=== PATIENT | male | born 1970 | race Caucasian/White ===

== ENCOUNTER 2022-02-04 16:35 | Emergency (ER) | payer OTHER, SELFPAY ==
[2022-02-04] VITALS (20 sets, daily range): BP systolic 116–183; BP diastolic 56–100; PULSE 52–65; RESP 14–48; TEMP 35.8; O2SAT 92–97; BMI 43.0
[2022-02-04 17:18] LABS: Add Manual Diff / Slide Review NO; Basophils Absolute Auto 100 /uL (0-100); Basophils Percent Auto 0.9 % (0-2); Eosinophils Absolute Auto 100 /uL (0-450); Eosinophils Percent Auto 1.7 % (2-4); Hematocrit 36.9 % (41-53); Hemoglobin 13.1 g/dL (13.5-17.5); Lymphocytes Absolute Auto 1100 /uL (1100-4500); Lymphocytes Percent Auto 14.8 % (25-40); Mean Corpuscular HGB Conc 35.5 % (30-36); Mean Corpuscular Hemoglobin 30.9 PG (26-34); Monocytes Absolute Auto 600 /uL (0-900); Monocytes Percent Auto 8.1 % (3-14); Neutrophils Absolute Auto 5400 /uL (1500-7000); Neutrophils Percent Auto 74.5 % (50-75); Platelet Count 187 X10^3/uL (150-400); Red Blood Cell Count 4.24 X10^6/uL (4.5-5.9); Red Cell Distribution Width 14.5 % (11.6-14.8); White Blood Cell Count 7.3 X10^3/uL (4.5-11.0)
[2022-02-04 17:29] LABS: Alanine Aminotransferase 632 IU/L (<50); Albumin 4.1 g/dL (3.5-5.0); Albumin Globulin Ratio 1.2 (1.0-2.8); Alkaline Phosphatase 258 U/L (38-126); Aspartate Aminotransferase 423 IU/L (17-59); BUN Creatinine Ratio 15.4 (6-22); Bilirubin Total 2.1 mg/dL (0.2-1.3); Blood Urea Nitrogen 14 mg/dL (9-20); Calcium 8.7 mg/dL (8.4-10.2); Carbon Dioxide 24 mmol/L (22-32); Chloride 105 mmol/L (98-107); Estimated Glomerular Filt Rate > 60 mL/min (>60); Globulin 3.4 g/dL (1.7-4.1); Glucose 83 mg/dL (70-100); HEMOLYSIS < 15 (0-50); Lipase 541 U/L (23-300); Potassium 3.7 mmol/L (3.4-5.1); Sodium 140 mmol/L (137-145); Total Protein 7.5 g/dL (6.3-8.2)
--- NOTE | 2022-02-04 18:08 | DI.US.S_ITS ---
PROCEDURE: US ABDOMEN LIMITED INDICATIONS: severe abdominal pain, RUQ per [place] TECHNIQUE: Real-time scanning was performed of the abdominal and retroperitoneal organs, with image documentation. COMPARISON: [facility], CT, CT ABDOMEN WITH CONTRAST, 02/01/2022, 12:51. FINDINGS: Liver: Upper limits of normal in size measuring 18.6 cm in length. Increased in echogenicity. Gallbladder: Nondilated. Small gallstones and sludge. Normal gallbladder wall thickness. No pericholecystic fluid. Negative sonographic James's sign. Biliary ducts: Intrahepatic bile ducts are non-dilated. Extrahepatic bile duct caliber measures 7 mm. Normal is 6-7 mm or less in diameter, or 10 mm or less post-cholecystectomy. Pancreas: Not well seen. IMPRESSION: Technically difficult exam. Decreased sonographic penetration of the liver. 1. No acute cholecystitis demonstrated. Gallstones and sludge suspected. 2. Increased hepatic echogenicity most consistent with hepatic steatosis. Other forms of hepatocellular disease could have similar appearance. Dictated by: Chidi Zambrano M.D. on 02/04/2022 at 19:24 Approved by: Chidi Zambrano M.D. on 02/04/2022 at 19:26
--- NOTE | 2022-02-04 18:08 | ED_ITS ---
HPI - Abdominal Pain General Chief Complaint: Abdominal Pain Stated Complaint: Severe ABD pain Time Seen by Provider: 02/04/22 18:05 Source: patient Mode of arrival: Ambulatory History of Present Illness HPI narrative: 52-year-old male former smoker with history of hypertension and hyperlipidemia presents for evaluation of severe epigastric and right upper quadrant pain. He states that over the past few days and has been increasingly present and seems to be triggered by food and drink. He was recently seen at [facility] under relatively similar circumstances, however at the time he had extremely high blood pressure and was diverted to [facility] from [id number] due to his potential for cardiac disease. Today he states he has moderate intensity epigastric pain without radiation and complains of provocation and palliation based on the elements listed above. He denies any runny nose, sore throat or cough. He has no chest pain or shortness of breath. Related Data Previous Rx's Medication Instructions Recorded amoxicillin 875 mg-potassium 1 tab PO Q12H #20 tabs 02/04/22 clavulanate 125 mg tablet hydrocodone 5 mg-acetaminophen 325 1 tab PO Q4-6H PRN pain #10 tabs 02/04/22 mg tablet ondansetron 4 mg disintegrating 4 mg PO TID-QID PRN nausea and 02/04/22 tablet vomiting #10 tabs Allergies Allergy/AdvReac Type Severity Reaction Status Date / Time No Known Drug Allergies Allergy Verified 02/04/22 21:31 Review of Systems Review of Systems Narrative: GENERAL: Denies chills, fatigue, malaise, fever, sweats. HEENT: Denies sinus pain, ear pain, sore throat, difficulty swallowing, dizziness. RESPIRATORY: Denies dyspnea, cough, wheezing, hemoptysis, sputum. CARDIOVASCULAR: Denies chest pain, palpitations, orthopnea, edema, GASTROINTESTINAL: See HPI : Denies dysuria, frequency, incontinence, hematuria, urinary retention. MUSCULOSKELETAL: denies weakness, joint pain, or bony pain SKIN: Denies rash, skin lesions, or other NEUROLOGIC: Denies weakness, headache, numbness, change in speech, confusion, seizures, incoordination. PSYCHIATRIC: No concerning psychosocial issues. 12 point review of systems is negative except for those stated above Patient History Social History Smoking Status: Former smoker Smoking Status: Former smoker alcohol intake frequency: a few times a month Substance Use Type: does not use Exam Narrative Exam Narrative: GENERAL: [52] year old patient appears stated age. Well-developed patient, in mild distress. HEAD: Atraumatic. Normocephalic. EYES: Pupils equal round and reactive. Extraocular motions intact. No scleral icterus. No injection or drainage. ENT: Nose without bleeding, purulent drainage. Throat without erythema, tonsillar hypertrophy or exudate. Airway patent. NECK: Trachea midline. Non tender CARDIOVASCULAR: Regular rate and rhythm without murmurs, gallops, or rubs. RESPIRATORY: Clear to auscultation. Breath sounds equal bilaterally. No wheezes, rales, or rhonchi. GASTROINTESTINAL: Abdomen soft, tender in the epigastric, nondistended. EXTREMITIES: No edema or joint tenderness. BACK: Nontender without deformity or crepitance. No flank tenderness. NEURO: AOx3. SKIN: No rash or erythema of visible areas Initial Vital Signs Initial Vital Signs: Vital Signs Temperature 96.5 F L 02/04/22 16:47 Pulse Rate 65 02/04/22 16:47 Respiratory Rate 20 02/04/22 16:47 Blood Pressure 183/100 H 02/04/22 16:47 Pulse Oximetry 97 02/04/22 16:47 Oxygen Delivery Method 02/04/22 16:47 Course Orders Ordered: ED Orders 02/04/22 17:07 Complete Blood Count AUTO DIFF Stat Comprehensive Metabolic Panel Stat Lipase Stat 02/04/22 17:29 EKG-12 Lead Stat 02/04/22 18:08 US abdomen limited Stat 02/04/22 19:42 CT abdomen pelvis w con Stat 02/04/22 19:45 Ictotest Urine Stat Urine Culture Stat Urine Microscopic Stat 02/04/22 22:00 Hepatitis Acute Panel Stat Discontinued Medications Hydrocodone Bitart/Acetaminophen (Hydrocodone/Acet 5/325 Prepack) 1 bottle MISC SEEINSTR ONE Stop: 02/04/22 23:00 Last Admin: 02/04/22 23:27 Dose: 1 bottle Documented By: ANTOINE Hydromorphone HCl (Hydromorphone 0.5 Mg Inj) 0.5 mg IV NOW ONE Stop: 02/04/22 18:18 Last Admin: 02/04/22 19:54 Dose: 0.5 mg Documented By: GARRY Hydromorphone HCl (Hydromorphone 1 Mg Inj) 1 mg IV NOW ONE Stop: 02/04/22 21:27 Last Admin: 02/04/22 23:28 Dose: Not Given Documented By: ANTOINE Sodium Chloride (Normal Saline 0.9%) 1,000 mls @ 1,000 mls/hr IV BOLUS ONE Stop: 02/04/22 19:16 Last Infusion: 02/04/22 23:00 Dose: 0 mls/hr Documented By: Admin: 02/04/22 19:15 Dose: 1,000 mls/hr Documented By: ASHKAN Ondansetron HCl (Ondansetron 4 Mg/2 Ml Inj) 4 mg IV NOW ONE Stop: 02/04/22 18:18 Last Admin: 02/04/22 19:55 Dose: 4 mg Documented By: GARRY Ondansetron HCl (Ondansetron 4 Mg Odt Prepack) 1 bottle MISC SEEINSTR ONE Stop: 02/04/22 23:00 Last Admin: 02/04/22 23:28 Dose: 1 bottle Documented By: ANTOINE Reevaluation(s) Reevaluation #1: Significant improvement after above-stated therapies. Pain is well controlled, he has no nausea or vomiting and is tolerating orals. Vital Signs Vital signs: Vital Signs - 8 hr 02/04/22 16:47 02/04/22 17:29 02/04/22 17:30 Temperature 96.5 F L Pulse Rate 65 64 63 Respiratory Rate 20 30 H 19 Blood Pressure 183/100 H Pulse Oximetry 97 97 97 Oxygen Delivery Method Room Air Room Air 02/04/22 17:31 02/04/22 17:31 02/04/22 18:00 Temperature Pulse Rate 61 56 L Respiratory Rate 18 21 Blood Pressure 146/68 H Pulse Oximetry 95 96 Oxygen Delivery Method 02/04/22 18:01 02/04/22 18:01 02/04/22 18:30 Temperature Pulse Rate 56 L 55 L Respiratory Rate 22 16 Blood Pressure 128/59 L Pulse Oximetry 96 97 Oxygen Delivery Method 02/04/22 18:31 02/04/22 18:31 02/04/22 19:00 Temperature Pulse Rate 55 L 65 Respiratory Rate 14 25 H Blood Pressure 137/68 Pulse Oximetry 97 96 Oxygen Delivery Method 02/04/22 19:01 02/04/22 19:01 02/04/22 19:30 Temperature Pulse Rate 62 64 Respiratory Rate 29 H 35 H Blood Pressure 148/70 H Pulse Oximetry 95 95 Oxygen Delivery Method 02/04/22 19:31 02/04/22 19:31 02/04/22 20:00 Temperature Pulse Rate 65 63 Respiratory Rate 25 H 28 H Blood Pressure 158/77 H Pulse Oximetry 95 93 Oxygen Delivery Method 02/04/22 20:01 02/04/22 20:01 02/04/22 20:31 Temperature Pulse Rate 63 62 Respiratory Rate 21 25 H Blood Pressure 116/56 L Pulse Oximetry 93 Oxygen Delivery Method 02/04/22 21:00 02/04/22 21:30 02/04/22 22:00 Temperature Pulse Rate 60 60 63 Respiratory Rate 16 19 40 H Blood Pressure Pulse Oximetry 94 96 92 Oxygen Delivery Method 02/04/22 22:30 02/04/22 23:00 Temperature Pulse Rate 52 L 60 Respiratory Rate 14 48 H Blood Pressure Pulse Oximetry 95 Oxygen Delivery Method MDM - Abdominal Pain Lab Data Result diagrams: 02/04/22 17:07 02/04/22 17:07 Labs: Lab Results 02/04/22 02/04/22 02/04/22 Range/Units 17:07 17:07 19:45 WBC 7.3 (4.5-11.0) X10^3/uL RBC 4.24 L (4.5-5.9) X10^6/uL Hgb 13.1 L (13.5-17.5) g/dL Hct 36.9 L (41-53) % MCV 87.0 (80-100) fL MCH 30.9 (26-34) PG MCHC 35.5 (30-36) % RDW 14.5 (11.6-14.8) % Plt Count 187 (150-400) X10^3/uL Neut % (Auto) 74.5 (50-75) % Lymph % (Auto) 14.8 L (25-40) % Tama % (Auto) 8.1 (3-14) % Eos % (Auto) 1.7 L (2-4) % Baso % (Auto) 0.9 (0-2) % Neut # (Auto) 5400 (4225-2538) /uL Lymph # (Auto) 1100 (2265-6541) /uL Tama # (Auto) 600 (0-900) /uL Eos # (Auto) 100 (0-450) /uL Baso # (Auto) 100 (0-100) /uL Sodium 140 (137-145) mmol/L Potassium 3.7 (3.4-5.1) mmol/L Chloride 105 (98-107) mmol/L Carbon Dioxide 24 (22-32) mmol/L BUN 14 (9-20) mg/dL Creatinine 0.91 (0.66-1.25) mg/dL Estimated GFR > 60 (>60) mL/min BUN/Creatinine Ratio 15.4 (6-22) Glucose 83 (70-100) mg/dL Calcium 8.7 (8.4-10.2) mg/dL Total Bilirubin 2.1 H (0.2-1.3) mg/dL AST 423 H (17-59) IU/L ALT 632 H (<50) IU/L Alkaline Phosphatase 258 H (38-126) U/L Total Protein 7.5 (6.3-8.2) g/dL Albumin 4.1 (3.5-5.0) g/dL Globulin 3.4 (1.7-4.1) g/dL Albumin/Globulin Ratio 1.2 (1.0-2.8) Lipase 541 H (23-300) U/L Ur Bilirubin Confirm Positive H (Negative) Urine RBC (0-5/HPF) Urine WBC (0-5/HPF) Ur Squamous Epith Cells (0-5/HPF) Urine Bacteria (None) Urine Mucus (Negative) Ur Culture Indicated? 02/04/22 Range/Units 19:45 WBC (4.5-11.0) X10^3/uL RBC (4.5-5.9) X10^6/uL Hgb (13.5-17.5) g/dL Hct (41-53) % MCV (80-100) fL MCH (26-34) PG MCHC (30-36) % RDW (11.6-14.8) % Plt Count (150-400) X10^3/uL Neut % (Auto) (50-75) % Lymph % (Auto) (25-40) % Tama % (Auto) (3-14) % Eos % (Auto) (2-4) % Baso % (Auto) (0-2) % Neut # (Auto) (2941-3275) /uL Lymph # (Auto) (1121-7154) /uL Tama # (Auto) (0-900) /uL Eos # (Auto) (0-450) /uL Baso # (Auto) (0-100) /uL Sodium (137-145) mmol/L Potassium (3.4-5.1) mmol/L Chloride (98-107) mmol/L Carbon Dioxide (22-32) mmol/L BUN (9-20) mg/dL Creatinine (0.66-1.25) mg/dL Estimated GFR (>60) mL/min BUN/Creatinine Ratio (6-22) Glucose (70-100) mg/dL Calcium (8.4-10.2) mg/dL Total Bilirubin (0.2-1.3) mg/dL AST (17-59) IU/L ALT (<50) IU/L Alkaline Phosphatase (38-126) U/L Total Protein (6.3-8.2) g/dL Albumin (3.5-5.0) g/dL Globulin (1.7-4.1) g/dL Albumin/Globulin Ratio (1.0-2.8) Lipase (23-300) U/L Ur Bilirubin Confirm (Negative) Urine RBC None seen (0-5/HPF) Urine WBC 1-5/hpf (0-5/HPF) Ur Squamous Epith Cells 0-1 /hpf (0-5/HPF) Urine Bacteria Occasional (0-1) (None) Urine Mucus 1+ H (Negative) Ur Culture Indicated? Culture not indicate Point of care testing: Urine Dip Bedside Urine Glucose Negative Bedside Urine Bilirubin + 1 Bedside Urine Ketone - Negative Urine Specific [place] 1.015 Bedside Urine Occult Blood - Negative Bedside Urine pH 6.0 Bedside Urine Protein +/- 15 Bedside Urine Urobilinogen +/- 1mg Bedside Urine Nitrite - Negative Bedside Urine Leukocytes - Negative Esterase Imaging Data US - abdomen: Radiologist's Impression: Jeff Tovar??52??M??1970 ? Allergy/Adv: No Known Drug Allergies (More??) Close Abdomen/Pelvis CT (Signed) Jaime Lucio - 02/04/22 Abdomen Ultrasound (Signed) Chidi Zambrano - 02/04/22 Launch?[address] [address] Ultrasound Report Signed Patient: Jeff Tovar MR#: [id number] : 1970 Acct:[id number] Age/Sex: 52 / M Date of Service: 02/04/22 Loc: ED Accession Number: [id number] ?? Procedure: US abdomen limited Ordering Provider: Mateus Meadows D.O. PROCEDURE:? US ABDOMEN LIMITED ? INDICATIONS:? severe abdominal pain, RUQ per Abdiel ? TECHNIQUE:? Real-time scanning was performed of the abdominal and retroperitoneal organs, with image documentation.? ? COMPARISON:? [facility], CT, CT ABDOMEN WITH CONTRAST, 02/01/2022, 12:51. ? FINDINGS:? ? Liver:? Upper limits of normal in size measuring 18.6 cm in length.? Increased in echogenicity. ? Gallbladder:? Nondilated.? Small gallstones and sludge. Normal gallbladder wall thickness. No pericholecystic fluid. Negative sonographic James's sign.? ? Biliary ducts:? Intrahepatic bile ducts are non-dilated.? Extrahepatic bile duct caliber measures 7 mm.? Normal is 6-7 mm or less in diameter, or 10 mm or less post-cholecystectomy.? ? Pancreas:? Not well seen.? ? ? IMPRESSION:? Technically difficult exam.? Decreased sonographic penetration of the liver. ? 1. No acute cholecystitis demonstrated.? Gallstones and sludge suspected.? ? 2. Increased hepatic echogenicity most consistent with hepatic steatosis. Other forms of hepatocellular disease could have similar appearance. ? ? ? Dictated by: Chidi Zambrano M.D. on 02/04/2022 at 19:24 ? ? Approved by: Chidi Zambrano M.D. on 02/04/2022 at 19:26 ? CT scan - abdomen/pelvis: Radiologist's Impression: Close Abdomen/Pelvis CT (Signed) Jaime Lucio - 02/04/22 Abdomen Ultrasound (Signed) Chidi Zambrano - 02/04/22 Launch?[address] [address] [address] Scan Report Signed Patient: Jeff Tovar MR#: [id number] : 1970 Acct:[id number] Age/Sex: 52 / M Date of Service: 02/04/22 Loc: ED Accession Number: [id number] ?? Procedure: CT abdomen pelvis w con Ordering Provider: Mateus Meadows D.O. PROCEDURE:? CT ABDOMEN PELVIS W CON ? INDICATIONS:? severe epigastric pain ? TECHNIQUE:? After the administration of IV contrast, axial sections were acquired from the lung bases to the pubic symphysis.? Coronal and sagittal reformats were performed.? For radiation dose reduction, the following was used:? automated exposure control, adjustment of mA and/or kV according to patient size. ? COMPARISON:? [facility], CT, CT ABDOMEN WITH CONTRAST, 02/01/2022, 12:51. ? FINDINGS:? Image quality:? Excellent.? ? Lung bases:? Unremarkable.? ? Heart:? Heart is normal in size. ? ? ABDOMEN: Liver:? No mass lesion. Gallbladder:? Within normal limits without calcified gallstones.? ? Biliary ducts:? No biliary ductal dilatation.? ? Pancreas:? No peripancreatic fat stranding or fluid collections to suggest acute pancreatitis.? No pancreatic duct dilatation or discrete pancreatic mass identified. Spleen:? Normal in size.? ? Adrenal Glands:? No adrenal nodules.? ? Kidneys and Ureters:? No hydronephrosis.? There are 3 simple appearing left renal cysts.? A simple right parapelvic cyst is also noted.? ? ? Stomach and Bowel:? There is mild segmental wall thickening with associated mild fat stranding along the 3rd portion of the duodenum.? The appendix is normal in appearance.? There is colonic diverticulosis without acute diverticulitis. Peritoneum:? There is minimal fat stranding and fluid extending inferiorly from the 3rd portion of the duodenum within the mesentery and to the right lateral paracolic gutter.? No free air.? ? Ventral Wall: ? No hernia.? Abdominal Nodes:? No retroperitoneal or mesenteric adenopathy by size criteria.? Vessels:? Aorta and inferior vena cava are normal in size.? ? PELVIS: Pelvic Organs:? Unremarkable.? ? Bladder:? Unremarkable.? ? Pelvic Nodes: No enlarged lymph nodes.? Miscellaneous: No inguinal hernias are seen. ? ? ? Bones:? Visualized osseous structures demonstrate no suspicious focal lesions. ? IMPRESSION:? ? 1. Mild segmental wall thickening of the 3rd portion of the duodenum with associated fat stranding consistent with a nonspecific infectious or inflammatory duodenitis.? ? Dictated by: Jaime Lucio M.D. on 02/04/2022 at 21:24 ? ? Approved by: Jaime Lucio M.D. on 02/04/2022 at 21:29 ? MDM Narrative Medical decision making narrative: Multiple etiologies for patient's symptoms considered include, but not limited to: [Gallbladder disease versus pancreatitis versus bowel obstruction versus other Patient's symptoms improved over duration of stay with above-stated therapies. History, physical exam, labs, imaging, and response to therapies have been reassuring. Though hepatobiliary numbers are elevated there are no findings on imaging to suggest there is a surgical cause of patient's symptoms. Findings and discharge diagnosis discussed with patient/family followed by verbalization of understanding Return precautions discussed with patient/family whom verbalize understanding. Pain has been well controlled and patient is tolerating oral hydration. Discharge Plan Departure Patient Disposition: Home Clinical Impression: Elevated transaminase level, Acute pancreatitis, Duodenitis Instructions: Acute Pancreatitis Activity Restrictions/Additional Instructions: *You have been diagnosed with [abdominal pain due to a combination of elevated liver transaminases, mild pancreatitis, and an inflammatory condition of your small bowel called duodenitis. Thankfully the imaging would suggest against a gallbladder that is infected or needs to be removed surgically. Furthermore, though your pancreas numbers are elevated your pain is well controlled, your tolerating oral hydration and the number is well below what we would typically consider for hospitalization. ] *What to do: *Please continue to take your regular medications as directed. [x ] New medication prescriptions sent to your pharmacy: [[facility]] *Please follow up with your primary care provider in 2-3 days, call for an appointment. Let them know you were seen in the Emergency Department and that we ask that you be seen in follow up. We will electronically transmit a record of today's note if your PCP is in our system *Please consider a clear liquid diet for the next 24-48 hours and then slowly advance to regular as tolerated. Also, try to avoid alcohol, nicotine, caffeine, spicy, acidic or fatty foods as this may worsen your symptoms *If you do not have a primary care provider please contact the [facility] Resource line at [phone]. They will ask some questions about your medical history and help get you set up with a doctor in the community. *Return to Emergency Department if you should have any new, worsening or concerning symptoms, such as [fever greater than 101 F, shaking chills, worsening pain, persistent vomiting or other bothersome symptoms] You were given narcotic medications through the IV as well as prescription for narcotics which will likely show up on any work related drug test you take for some time moving forward Prescriptions: New hydrocodone-acetaminophen 5-325 mg tablet 1 tab PO Q4-6H PRN (Reason: pain) Qty: 10 0RF ondansetron 4 mg tablet,disintegrating 4 mg PO TID-QID PRN (Reason: nausea and vomiting) Qty: 10 0RF amoxicillin-pot clavulanate 875-125 mg tablet 1 tab PO Q12H Qty: 20 0RF Stand Alone Forms: Work Release Note Visit Report Forms: Patient Portal/API
[2022-02-04] MEDS: SODIUM CHLORIDE 0.9% 1,000 ML 1000 ML IV (19:15)
--- NOTE | 2022-02-04 19:25 | PC.NURSE ---
Report received - assumed care of pt at this time
--- NOTE | 2022-02-04 19:42 | DI.CT.S_ITS ---
PROCEDURE: CT ABDOMEN PELVIS W CON INDICATIONS: severe epigastric pain TECHNIQUE: After the administration of IV contrast, axial sections were acquired from the lung bases to the pubic symphysis. Coronal and sagittal reformats were performed. For radiation dose reduction, the following was used: automated exposure control, adjustment of mA and/or kV according to patient size. COMPARISON: [facility], CT, CT ABDOMEN WITH CONTRAST, 02/01/2022, 12:51. FINDINGS: Image quality: Excellent. Lung bases: Unremarkable. Heart: Heart is normal in size. ABDOMEN: Liver: No mass lesion. Gallbladder: Within normal limits without calcified gallstones. Biliary ducts: No biliary ductal dilatation. Pancreas: No peripancreatic fat stranding or fluid collections to suggest acute pancreatitis. No pancreatic duct dilatation or discrete pancreatic mass identified. Spleen: Normal in size. Adrenal Glands: No adrenal nodules. Kidneys and Ureters: No hydronephrosis. There are 3 simple appearing left renal cysts. A simple right parapelvic cyst is also noted. Stomach and Bowel: There is mild segmental wall thickening with associated mild fat stranding along the 3rd portion of the duodenum. The appendix is normal in appearance. There is colonic diverticulosis without acute diverticulitis. Peritoneum: There is minimal fat stranding and fluid extending inferiorly from the 3rd portion of the duodenum within the mesentery and to the right lateral paracolic gutter. No free air. Ventral Wall: No hernia. Abdominal Nodes: No retroperitoneal or mesenteric adenopathy by size criteria. Vessels: Aorta and inferior vena cava are normal in size. PELVIS: Pelvic Organs: Unremarkable. Bladder: Unremarkable. Pelvic Nodes: No enlarged lymph nodes. Miscellaneous: No inguinal hernias are seen. Bones: Visualized osseous structures demonstrate no suspicious focal lesions. IMPRESSION: 1. Mild segmental wall thickening of the 3rd portion of the duodenum with associated fat stranding consistent with a nonspecific infectious or inflammatory duodenitis. Dictated by: Jaime Lucio M.D. on 02/04/2022 at 21:24 Approved by: Jaime Lucio M.D. on 02/04/2022 at 21:29
--- NOTE | 2022-02-04 19:45 | PC.NURSE ---
given urinal - dark yellow urine noted
[2022-02-04] MEDS: HYDROMORPHONE 0.5 MG INJ IV (19:54)
[2022-02-04] MEDS: ONDANSETRON 4 MG/2 ML INJ IV (19:55)
--- NOTE | 2022-02-04 20:15 | PC.NURSE ---
To CT via stretcher with radiology
[2022-02-04 20:17] LABS: Ictotest Urine Positive (Negative)
[2022-02-04 20:23] LABS: Bacteria Urine Occasional (0-1); Mucus Urine 1+ (Negative); RBC Urine None Seen (0-5/HPF); Squamous Epithelial Cell Urine 0-1 /HPF (0-5/HPF); WBC Urine 1-5/HPF (0-5/HPF)
--- NOTE | 2022-02-04 20:30 | PC.NURSE ---
returns to the room from radiology via stretcher
--- NOTE | 2022-02-04 21:15 | PC.NURSE ---
C/o pain at this time - states that he the first dose took the edge off but that it is back - requesting more medication at this time
--- NOTE | 2022-02-04 21:45 | PC.NURSE ---
MD at bedside for update
--- NOTE | 2022-02-04 21:55 | PC.NURSE ---
given po juice - tolerating well
--- NOTE | 2022-02-04 22:00 | PC.NURSE ---
Addendum entered by Lizbeth Lawson R.N. 02/04/22 22:15: Blood drawn for hepatitis panel - labelled at bedside and sent to lab Original Note: Requesting his CPAP machine from his car so he can try to rest - this RN retrieved the machine from the car accompanied by security - given to patient for use - lights dimmed for comfort
--- NOTE | 2022-02-04 23:00 | PC.NURSE ---
MD at bedside - pt tolerated PO fluids without concern
[2022-02-04] MEDS: HYDROCODONE/ACET 5/325 PREPACK 1 BOTTLE MISC (23:27)
[2022-02-04] MEDS: ONDANSETRON 4 MG ODT PREPACK 1 BOTTLE MISC (23:28)
[2022-02-06 04:37] LABS: HBsAg Screen Negative (Negative); Hepatitis A Antibody IgM Negative (Negative); Hepatitis B Core Antibody IgM Negative (Negative); Hepatitis C Antibody <0.1 s/co ratio (0.0-0.9)
== END 2022-02-04 23:34 | disposition home or self-care (01) ==
PROVIDERS: Emergency Medicine; Emergency Provider Emergency Medicine
DX: K85.90 Acute pancreatitis without necrosis or infection, unspecified (principal); R74.01 Elevation of levels of liver transaminase levels; K29.80 Duodenitis without bleeding
CPT/HCPCS: 74177; 76705; 80053; 80074; 81003; 81015; 83690; 85025; 87086; 93005; 96361; 96374; 96375; 99283; 99284; J1170; J2405; Q9967